=== PATIENT | male | born 1940 | race Caucasian/White ===

== ENCOUNTER 2021-12-14 12:06 | Emergency (ER) | payer OTHER ==
[~2021-12-14] VITALS: Ht 165.1 cm; Wt 63.5 kg
[~2021-12-14 12:06] MED LIST: ALBUTEROL2.5 MG/3 M IH; ASA81 MG; ASA81 MG PO; ATACAND32 MG; CANDESARTAN CIL32 MG PO; CARdura 2MG TABLET PO; CIPRO750 MG PO; Colace 100MG PO; DOCUSATE SODIU100 MG PO; FOLIC ACID1 MG PO; HYDROCHLOROTH12.5 M1 PO; IMDUR30 MG PO; ISOSORBIDE DINI20 MG; LIPITOR20 MG PO; MEDROL4 MG PO; MEDROLPACK PO; NEURONTIN PO; NORVASC 5MG TAB PO; NORVASC5 MG; Neurontin PO; PERCOCET 5/3251 TAB PO; PREDNISONE20 MG PO; SERTRALINE HCL50 MG PO; TENORMIN50 MG; TUSSI PRES-B L120 M1 PO; ZOCOR20 MG PO
[2021-12-14] MEDS ORDERED: IRBESARTAN150 MG PO (12:36)
[2021-12-14] MEDS ORDERED: SYNTHROID50 MCG (12:37)
== END 2021-12-14 14:52 | disposition home or self-care (01) ==
LOC: ER 12:06
DX: S30.0XXA Contusion of lower back and pelvis, initial encounter (principal); W18.39XA Other fall on same level, initial encounter; Y93.H2 Activity, gardening and landscaping; Y92.017 Garden or yard in single-family (private) house as the place of occurrence of the external cause; Y99.9 Unspecified external cause status; M54.59 Other low back pain; I10 Essential (primary) hypertension

== ENCOUNTER 2021-12-24 01:27 | Emergency (ER) | payer OTHER ==
[~2021-12-24] VITALS: Ht 162.6 cm; Wt 61.2 kg
[~2021-12-24 01:27] MED LIST changes: +IRBESARTAN150 MG PO; +SYNTHROID50 MCG
== END 2021-12-24 13:37 | disposition home or self-care (01) ==
LOC: ER 01:27
DX: K57.90 Diverticulosis of intestine, part unspecified, without perforation or abscess without bleeding (principal); R10.84 Generalized abdominal pain; I10 Essential (primary) hypertension